=== PATIENT | male | born 1955 | race Caucasian/White ===

== ENCOUNTER 2024-08-25 17:50 | Emergency (ER) | payer OTHER ==
[2024-08-25] MEDS ORDERED: ONDANSETRON 4 MG/2 ML VIAL ONE (18:18)
[2024-08-25] MEDS ORDERED: CLOPIDOGREL 75 MG TABLET ONE (18:18)
[2024-08-25] MEDS ORDERED: FAMOTIDINE 20 MG/2 ML VIAL IV ONE (18:18)
[2024-08-25] MEDS ORDERED: MORPHINE 2 MG/ML SYR ONE (18:18)
[2024-08-25] MEDS ORDERED: HEPARIN 5000 UNIT/ML 1 ML VIAL ONE (18:18)
[2024-08-25] MEDS ORDERED: TENECTEPLASE 50 MG/10 ML VIAL IV ONE (18:19)
[2024-08-25] MEDS ORDERED: HEPARIN/D5W 25,000 UNIT/500 ML BAG IV ONE (18:19)
[2024-08-25] MEDS ORDERED: NA CHLORIDE 0.9% 1,000 ML ONE (18:19)
[2024-08-25] MEDS ORDERED: ASPIRIN 81 MG CHEWABLE TABLET ONE (18:29)
--- NOTE | 2024-08-25 18:32 | EDPHYS ---
Physician Documentation [facility] Name: Akil Macias Age: 69 yrs Sex: Male : 1955 Arrival Date: 08/25/2024 Time: 17:50 Bed IW10 Private MD: ED Physician Talon Smith HPI: 08/25 18:01 This 69 yrs old Male presents to ER via Unassigned with complaints of Chest Pain, Arm kb Pain, Vomiting. 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 Reports vomiting x1, shortness of breath and clamminess. Pt has never had this pain before. States he was riding in a car when the pain came on. . 18:27 The patient or guardian reports chest pain that is located primarily in the substernal isabel area. Onset: just prior to arrival. The pain does not radiate. Associated signs and symptoms: Pertinent positives: nausea, shortness of breath. The chest pain is described as crushing. Modifying factors: The symptoms are alleviated by nothing. the symptoms are aggravated by nothing. Severity of pain: At its worst the pain was moderate severe in the emergency department the pain is unchanged. The patient has not experienced similar symptoms in the past. Historical: - Allergies: 18:08 No Known Allergies; hb - PMHx: 18:10 Hypertensive disorder; Hypercholesterolemia; rs5 - PSHx: 18:10 None; rs5 - Immunization history:: Adult Immunizations up to date. - Infectious Disease History:: Denies. - Family history:: not pertinent. - Social history:: Smoking status: Patient denies any tobacco usage or history of. ROS: 18:03 Constitutional: As per HPI kb 18:32 Eyes: Negative for injury, pain, redness, and discharge, ENT: Negative for injury, isabel pain, and discharge, Neck: Negative for injury, pain, and swelling, Abdomen/GI: Negative for abdominal pain, nausea, vomiting, diarrhea, and constipation, Back: Negative for injury and pain, : Negative for injury, bleeding, discharge, and swelling, MS/Extremity: Negative for injury and deformity, Skin: Negative for injury, rash, and discoloration, Neuro: Negative for headache, weakness, numbness, tingling, and seizure, Psych: Negative for depression, anxiety, suicide ideation, homicidal ideation, and hallucinations, Allergy/Immunology: Negative for hives, rash, and allergies, Endocrine: Negative for neck swelling, polydipsia, polyuria, polyphagia, and marked weight changes, Hematologic/Lymphatic: Negative for swollen nodes, abnormal bleeding, and unusual bruising, 18:32 Cardiovascular: Positive for chest pain, of the chest, 18:32 Respiratory: Positive for shortness of breath, at rest. Exam: 18:03 Constitutional: This is a well developed, well nourished patient who is awake, alert, kb and in no acute distress. Head/Face: Normocephalic, atraumatic. ENT: Moist Mucous membranes Cardiovascular: Regular rate Respiratory: Respirations even and unlabored. No increased work of breathing. Talking in full sentences Abdomen/GI: Soft, non-tender. No distention Skin: Warm, dry with normal turgor. Normal color. MS/ Extremity: Pulses equal, no cyanosis. Neurovascular intact. Full, normal range of motion. Neuro: Awake and alert, GCS 15, oriented to person, place, time, and situation. 18:32 ECG was reviewed by the Attending Physician. [facility] 18:38 ECG was reviewed by the Attending Physician. [facility] Vital Signs: 18:07 BP 168 / 98; Pulse 63; Resp 20; Temp 97.7; Pulse Ox 99% on R/A; Weight 67.59 kg; Height hb 5 ft. 3 in. ; Pain 5/10; 18:20 BP 172 / 91; Pulse 77; Resp 17; Pulse Ox 99% on R/A; rs5 18:45 BP 165 / 88; Pulse 69; Resp 18; Pulse Ox 99% on R/A; rs5 18:07 Body Mass Index 26.39 (67.59 kg, 160.02 cm) hb 18:07 Pain Scale: Adult hb MDM: 17:57 Medical Screening Exam initiated kb 18:28 Differential diagnosis: abnormal EKG, acute myocardial infarction, acute pericarditis, isabel anxiety, Cholelithiasis costochondritis, mitral valve prolapse, peptic ulcer disease, pleurisy, pulmonary embolus, stable angina, thoracic aortic disection, unstable angina. HEART Score: History: Highly Suspicious (2), ECG: Significant ST-deviation (2), Age: > or = 65 years (2), Risk Factors: > or = 3 Risk factors for atherosclerotic disease (2), [Hypercholesterolemia] [Hypertension] [+ Family HX] Troponin:. The patient was given aspirin in the Emergency Department. ASHU Risk Score: 1 - patient's age is greater or equal to 65 years, 1 - Three or more CAD risk factors, 1- Known CAD, 1 - ASA use in past 7 days, 1 - Recent [<24hrs] Severe Angina, 1 - ST deviation >0.5mm, TOTAL SCORE = 6. Data reviewed: vital signs, nurses notes, lab test result(s), EKG, radiologic studies, plain films. Consideration of Admission/Observation Escalation of care including admission/observation considered. I considered the following discharge prescriptions or medication management in the emergency department Medications were administered in the Emergency Department. See MAR. Independent interpretation of the following test(s) in the Emergency Department EKG: See my EKG interpretation above. Test considered but Not performed: Ultrasound NO 2 D ECHO. Care significantly affected by the following chronic conditions: Hypertension. Counseling: I had a detailed discussion with the patient and/or guardian regarding the historical points, exam findings, and any diagnostic results supporting the discharge/admit diagnosis, the presence of at least one elevated blood pressure reading (>120/80) during this emergency department visit, lab results, radiology results, the need to transfer to another facility, for higher level of care, [facility] does not immediately have the required specialist. 08/25 18:09 Order name: Basic Metabolic Panel; Complete Time: 18:58 kb 08/25 18:09 Order name: CBC with Diff; Complete Time: 18:58 kb 08/25 18:09 Order name: LFT's; Complete Time: 18:58 kb 08/25 18:09 Order name: Magnesium; Complete Time: 18:58 kb 08/25 18:09 Order name: NT PRO-BNP; Complete Time: 18:58 kb 08/25 18:09 Order name: Troponin HS; Complete Time: 18:58 kb 08/25 18:30 Order name: Ptt, Activated; Complete Time: 18:58 ap3 08/25 18:09 Order name: EKG; Complete Time: 18:09 kb 08/25 18:09 Order name: Cardiac monitoring; Complete Time: 18:37 kb 08/25 18:09 Order name: EKG - Nurse/Tech; Complete Time: 18:37 kb 08/25 18:09 Order name: IV Saline Lock; Complete Time: 18:37 kb 08/25 18:09 Order name: Labs collected and sent; Complete Time: 18:37 kb 08/25 18:09 Order name: O2 Per Protocol; Complete Time: 18:37 kb 08/25 18:09 Order name: O2 Sat Monitoring; Complete Time: 18:37 kb EC:32 Rate is 71 beats/min. Rhythm is regular. QRS [place] is Normal. AK interval is normal. QT isabel interval is normal. No Q waves. T waves are Normal. ST Segment is elevated in leads II, III, aVF. ST Segment is depressed in leads V1, V2, V3, V4. Clinical impression: Inferior AR - acute. Interpreted by me. Reviewed by me. 18:38 Rate is 64 beats/min. Rhythm is regular. QRS [place] is Normal. [place] interval is normal. QRS isabel interval is normal. QT interval is normal. No Q waves. T waves are Normal. ST Segment is elevated in leads II, III, aVF. ST Segment is depressed in leads V1, V2, V3, V4. Clinical impression: Inferior AR - acute. Interpreted by me. Reviewed by me. Administered Medications: 18:20 Drug: Aspirin PO Chewable Tablet 324 mg PO once; 81 mg tablets x 4 Route: PO; rs5 18:50 Follow up: Response: No adverse reaction rs5 18:20 Drug: Tenecteplase IV (Administer 10 ml NS flush BEFORE and AFTER tenecteplase) 35 mg rs5 IV at per protocol once {Co-Signature: ap3 (Odalys Noland RN).} {Note: adm 7 ml .} Route: IV; Rate: per protocol; Site: right antecubital; 18:50 Follow up: Response: No adverse reaction rs5 18:20 Drug: Famotidine IVP 20 mg IVP once; dilute with 10 mL 0.9% NaCl; give over 2 minutes rs5 Route: IVP; Site: right antecubital; 18:40 Follow up: Response: No adverse reaction rs5 18:20 Drug: Heparin (AR-Bolus with thrombolytic) - HEParin IVP 60 units/kg IVP once; Max 4000 kb3 units Route: IVP; Site: right antecubital; 18:50 Follow up: Response: No adverse reaction rs5 18:20 Drug: Heparin (AR Drip) 12 units/kg/[place] - ([place] [address] units, D5W IV 500 ml) IV at kb3 calculated rate Per protocol; Max initial rate 1000 units/hr {Note: 800 units/hr .} Route: IV; Rate: calculated rate; Site: right antecubital; 18:50 Follow up: Response: No adverse reaction; IV Status: Infusion continued upon transfer rs5 18:20 Drug: NS 0.9% IV 1000 ml IV at 1000 ml once; to be given as a bolus over 60 minutes rs5 Route: IV; Rate: 1000 ml; Site: right antecubital; 18:50 Follow up: Response: No adverse reaction; IV Status: Infusion continued upon transfer; rs5 IV Intake: 400ml 18:20 Drug: morphine IVP or IV 2 mg IVP once over 4 mins Route: IVP; Infused Over: 4 mins; rs5 Site: right antecubital; 18:40 Follow up: Response: No adverse reaction rs5 18:20 Drug: Ondansetron IVP 4 mg IVP once; over 2 minutes Route: IVP; Site: right antecubital;rs5 18:30 Follow up: Response: No adverse reaction rs5 18:30 Drug: Clopidogrel PO 300 mg PO once Route: PO; rs5 18:50 Follow up: Response: No adverse reaction rs5 18:58 CANCELLED (Duplicate Order): [id number] mg PO once isable 19:40 Not Given (Patient Refused): morphineor iv 2 mg IVP once over 4 mins rs5 Disposition: 18:28 Co-signature as Attending Physician, Talon Smith MD I agree with the assessment and isabel plan of care. 18:31 Critical Care:. isabel Disposition Summary: 08/25/24 18:31 Transfer Ordered Notes: Transfer Location: [facility] isabel Reason: Higher level of care isabel Condition: Critical isabel Problem: an ongoing problem isabel Symptoms: are unchanged isabel Accepting Physician: TO [facility], [facility](08/25/24 19:31) al5 Diagnosis - ST elevation (STEMI) myocardial infarction of unspecified site - POSTERIOR isabel - Essential (primary) hypertension isabel - Hypokalemia isabel Discharge Instructions: - Discharge Summary Sheet bc6 Forms: - Medication Reconciliation Form isabel - SBAR form bc6 Critical care time excluding procedures: 18:31 Critical care time: Bedside Care: 25 minutes, Consultation: 15 minutes, Family isabel Intervention: 5 minutes. Total time: 45 minutes Signatures: Dispatcher [employer] EDEstefanía Coley, AV MYERS-Talon Mack MD MD cha Baxter, Heather, RN RN Elsie Ruff, RN RN kb3 Glynn Lemus RN RN rs5 Odalys Broussard RN RN al5 Odalys Noland RN ap3 Corrections: (The following items were deleted from the chart) 18:58 18:51 Clopidogrel PO 300 mg PO once ordered. [facility] 18:59 18:31 TO [facility] 19:18 18:09 Chest Single View+[id number] ordered. [facility] 19: 18:59 TO [facility] isabel al5
--- NOTE | 2024-08-25 18:32 | ER ---
Nurse's Notes [facility] Name: Akil Macias Age: 69 yrs Sex: Male : 1955 Arrival Date: 08/25/2024 Time: 17:50 Bed IW10 Private MD: Diagnosis: ST elevation (STEMI) myocardial infarction of unspecified site-POSTERIOR;Essential (primary) hypertension;Hypokalemia Presentation: 08/25 18:07 Chief complaint: Chest pressure, SOB, and N/V x 1 hr. Coronavirus screen: At this time, hb the client does not indicate any symptoms associated with coronavirus-19. Ebola Screen: No symptoms or risks identified at this time. Initial Sepsis Screen: Does the patient meet any 2 criteria? No. Patient's initial sepsis screen is negative. Does the patient have a suspected source of infection? No. Patient's initial sepsis screen is negative. Risk Assessment: Do you want to hurt yourself or someone else? Patient reports no desire to harm self or others. Onset of symptoms was August 25, 2024. 18:07 Method Of Arrival: Ambulatory hb 18:07 Acuity: ZAIRA 2 hb Historical: - Allergies: 18:08 No Known Allergies; hb - PMHx: 18:10 Hypertensive disorder; Hypercholesterolemia; rs5 - PSHx: 18:10 None; rs5 - Immunization history:: Adult Immunizations up to date. - Infectious Disease History:: Denies. - Family history:: not pertinent. - Social history:: Smoking status: Patient denies any tobacco usage or history of. Screenin:10 [facility] ED Fall Risk Assessment (Adult) History of falling in the last 3 months, rs5 including since admission No falls in past 3 months (0 pts) Confusion or Disorientation No (0 pts) Intoxicated or Sedated No (0 pts) Impaired Gait No (0 pts) Mobility Assist Device Used No (0 pt) Altered Elimination No (0 pt) Score/Fall Risk Level 0 - 2 = Low Risk Oriented to surroundings, Maintained a safe environment. 18:10 Abuse screen: Denies threats or abuse. Nutritional screening: No deficits noted. rs5 Tuberculosis screening: No symptoms or risk factors identified. Assessment: 18:10 General: Appears in no apparent distress. uncomfortable, Behavior is calm, cooperative. rs5 Pain: Complains of pain in chest Pain radiates to left arm Pain currently is 7 out of 10 on a pain scale. Quality of pain is described as aching, pressure, Pain began 1 hour ago. Is continuous. 18:10 Neuro: rs5 18:10 Neuro: Level of Consciousness is awake, alert, obeys commands, Oriented to person, rs5 place, time, situation. Cardiovascular: Patient's skin is warm and dry. Respiratory: Airway is patent Respiratory effort is even, unlabored, Respiratory pattern is regular, symmetrical. GI: Abdomen is round non-distended, Abd is soft and non tender X 4 quads. : No signs and/or symptoms were reported regarding the genitourinary system. EENT: No signs and/or symptoms were reported regarding the EENT system. Derm: Skin is intact, Skin is pink, warm \T\ dry. Musculoskeletal: Range of motion: intact in all extremities. 18:15 Reassessment: Patient and/or family updated on plan of care and expected duration. Pain rs5 level reassessed. Patient is alert, oriented x 3, equal unlabored respirations, skin warm/dry/pink. EKG handed to provider, pt moved to room 2 per MD orders. 18:45 Reassessment: Patient and/or family updated on plan of care and expected duration. Pain rs5 level reassessed. Patient is alert, oriented x 3, equal unlabored respirations, skin warm/dry/pink. 18:50 Reassessment: report given to life flight at bedside . rs5 Vital Signs: 18:07 BP 168 / 98; Pulse 63; Resp 20; Temp 97.7; Pulse Ox 99% on R/A; Weight 67.59 kg; Height hb 5 ft. 3 in. ; Pain 5/10; 18:20 BP 172 / 91; Pulse 77; Resp 17; Pulse Ox 99% on R/A; rs5 18:45 BP 165 / 88; Pulse 69; Resp 18; Pulse Ox 99% on R/A; rs5 18:07 Body Mass Index 26.39 (67.59 kg, 160.02 cm) hb 18:07 Pain Scale: Adult hb Vitals: 18:15 Cardiac Rhythm Assessment Other ST elevation in multiple leads. kb3 ED Course: 17:51 Patient arrived in ED. mr 17:57 Estefanía Malone, AV is PHCP. kb 17:57 Talon Smith MD is Attending Physician. kb 18:08 Triage completed. hb 18:10 Patient has correct armband on for positive identification. Bed in low position. Call rs5 light in reach. Side rails up X2. Client placed on continuous cardiac and pulse oximetry monitoring. NIBP monitoring applied. manager food safety on. Pulse ox on. 18:10 Arm band placed on right wrist. rs5 18:10 One-on-one care X 45 minutes. kb3 18:10 No provider procedures requiring assistance completed. Inserted saline lock: 22 gauge rs5 in left antecubital area, using aseptic technique. Blood collected. Flushed with 10 mL NS. Patient maintains SpO2 saturation greater than 95% on room air. 18:10 EKG done, by ED staff, reviewed by Talon Smith MD. kb3 18:20 Inserted saline lock: 22 gauge in right antecubital area, using aseptic technique. rs5 Blood collected. Flushed with 10 mL NS. 18:20 Initial lab(s) drawn, by ED staff. kb3 18:22 Radiology exam delayed due to IV insertion attempt and/or patient not having az appropriate IV at this time. 18:45 Provided Education on: need for transfer. rs5 18:50 Patient transferred, IV remains in place. rs5 Administered Medications: 18:20 Drug: Aspirin PO Chewable Tablet 324 mg PO once; 81 mg tablets x 4 Route: PO; rs5 18:50 Follow up: Response: No adverse reaction rs5 18:20 Drug: Tenecteplase IV (Administer 10 ml NS flush BEFORE and AFTER tenecteplase) 35 mg rs5 IV at per protocol once {Co-Signature: ap3 (Odalys Noland RN).} {Note: adm 7 ml .} Route: IV; Rate: per protocol; Site: right antecubital; 18:50 Follow up: Response: No adverse reaction rs5 18:20 Drug: Famotidine IVP 20 mg IVP once; dilute with 10 mL 0.9% NaCl; give over 2 minutes rs5 Route: IVP; Site: right antecubital; 18:40 Follow up: Response: No adverse reaction rs5 18:20 Drug: Heparin (MO-Bolus with thrombolytic) - HEParin IVP 60 units/kg IVP once; Max 4000 kb3 units Route: IVP; Site: right antecubital; 18:50 Follow up: Response: No adverse reaction rs5 18:20 Drug: Heparin ([place] Drip) 12 units/kg/[place] - ([place] [address] units, D5W IV 500 ml) IV at kb3 calculated rate Per protocol; Max initial rate 1000 units/hr {Note: 800 units/hr .} Route: IV; Rate: calculated rate; Site: right antecubital; 18:50 Follow up: Response: No adverse reaction; IV Status: Infusion continued upon transfer rs5 18:20 Drug: NS 0.9% IV 1000 ml IV at 1000 ml once; to be given as a bolus over 60 minutes rs5 Route: IV; Rate: 1000 ml; Site: right antecubital; 18:50 Follow up: Response: No adverse reaction; IV Status: Infusion continued upon transfer; rs5 IV Intake: 400ml 18:20 Drug: morphine IVP or IV 2 mg IVP once over 4 mins Route: IVP; Infused Over: 4 mins; rs5 Site: right antecubital; 18:40 Follow up: Response: No adverse reaction rs5 18:20 Drug: Ondansetron IVP 4 mg IVP once; over 2 minutes Route: IVP; Site: right antecubital;rs5 18:30 Follow up: Response: No adverse reaction rs5 18:30 Drug: Clopidogrel PO 300 mg PO once Route: PO; rs5 18:50 Follow up: Response: No adverse reaction rs5 18:58 CANCELLED (Duplicate Order): [id number] mg PO once [facility] 19:40 Not Given (Patient Refused): morphineor iv 2 mg IVP once over 4 mins rs5 Medication: 18:08 VIS not applicable for this client. rs5 Intake: 18:50 IV: 400ml; Total: 400ml. rs5 Outcome: 18:31 ER care complete, transfer ordered by . isabel 18:50 Patient left the ED. rs5 18:50 Transferred by helicopter to [facility], Transfer form completed. rs5 18:50 Condition: stable 18:50 Instructed on the need for transfer, Demonstrated understanding of instructions, Signatures: Estefanía Malone, BAND NAILER-C BAND NAILER-Talon Mack MD MD cha Rivera, Mary, Reg Deidre Castelan RN Vanessa German Kelly, RN RN kb3 Glynn Lemus RN RN rs5 Odalys Broussard RN RN al5 Odalys Noland RN ap3 Corrections: (The following items were deleted from the chart) 19:36 19:31 Patient left the ED. jean-claude [email or web address]
[2024-08-25 18:33] LABS: Absolute Basophils 0.1 K/uL (0-0.5); Absolute Eosinophils 0.1 K/uL (0-0.5); Absolute Lymphocytes (CBC) 4.8 K/uL (0.7-4.9); Absolute Monocytes 1.2 K/uL (0.1-1.3); Absolute Neutrophil 8.2 K/uL (1.8-8.0); Eosinophils % 0.8 % (0-4.4); Hemoglobin 15.2 g/dL (13.6-17.9); Lymphocytes % 33.4 % (15.3-44.8); MCH 30.5 pg (27.0-35.0); MCHC 33.8 g/dL (32.0-36.0); MCV 90.1 fL (80-100); MPV 7.5 fL (7.6-11.3); Monocytes % 8.5 % (3.3-12.3); Neutrophils % 56.3 % (41.7-73.7); Nucleated Red Blood Cells % 0.1 % (0-0); Platelets 482 thou/uL (152-406); RBC Red Blood Cell Count 4.99 M/uL (4.33-5.43); Red Cell Distribution Width 13.9 % (12.1-15.2)
[2024-08-25 18:54] LABS: ALT/SGPT 16 U/L (16-61); AST/SGOT 15 U/L (15-37); Albumin 3.4 g/dL (3.4-5.0); Albumin/Globulin Ratio 0.8 (1.1-1.8); Alkaline Phosphatase 107 U/L (45-117); Anion Gap 8.9 mEq/L (5.0-15.0); BUN Blood Urea Nitrogen 15 mg/dL (7-18); Bicarbonate 33 mEq/L (21-32); Bilirubin Direct < 0.2 mg/dL (0-0.2); Bilirubin Indirect, Calculated 0.1 mg/dL (0.2-0.8); Bilirubin Total 0.3 mg/dL (0.2-1.0); Globulin 4.3 g/dL (2.3-3.5); Glomerular Filtration Rate 71 ml/min (=/>90); Glucose Level 123 mg/dL (74-106); Magnesium 2.3 mg/dL (1.6-2.4); NT PRO-BNP 114 pg/mL (<125); Potassium 2.9 mEq/L (3.5-5.1); Protein, Total 7.7 g/dL (6.4-8.2); Sodium Level 137 mEq/L (136-145); Troponin High Sensitivity 21.7 pg/mL (<58.9)
[2024-08-25 19:35] VITALS: BP 168/98; TEMP 97.7; O2SAT 99
--- NOTE | 2024-08-29 13:47 | EKG ---
Test Date: 2024-08-25 Test Time: 18:11:34 Calibration Tester: MAXIMILIAN MEASUREMENT RESULTS: Intervals: Rate: 71 VT: 170 QRSD: 86 QT: 402 QTc: 436 [place]: P: 72 VT: 170 QRS: 55 T: 56 INTERPRETIVE STATEMENTS: Sinus rhythm with marked sinus arrhythmia ST elevation, consider inferolateral injury or acute infarct ACUTE CA / STEMI Abnormal ECG No previous ECG available for comparison Electronically Signed On 08-29-24 13:38:43 HOT METAL CRANE OPERATOR by Samir Madera
--- NOTE | 2024-08-29 13:47 | EKG ---
Test Date: 2024-08-25 Test Time: 18:09:35 Mathematics Professor: MAXIMILIAN MEASUREMENT RESULTS: Intervals: Rate: 64 MT: 180 QRSD: 86 QT: 402 QTc: 414 [place]: P: 55 MT: 180 QRS: 51 T: 55 INTERPRETIVE STATEMENTS: Sinus rhythm with marked sinus arrhythmia ST elevation, consider inferolateral injury or acute infarct ACUTE [place] / STEMI Abnormal ECG No previous ECG available for comparison Electronically Signed On 08-29-24 13:38:50 CAR RENTAL SERVICE ATTENDANT by Samir Madera
== END 2024-08-25 19:31 | disposition short-term general hospital (02) ==
LOC: ER 17:50
DX: I21.29 ST elevation (STEMI) myocardial infarction involving other sites (principal); I10 Essential (primary) hypertension; E87.6 Hypokalemia; E78.00 Pure hypercholesterolemia, unspecified
CPT/HCPCS: 96365; 92977; 93005 ×2; 85025; 80048; 36415; 83735; 80076; 85730; 84484; 83880; 96375; 99285; J1644; J3101; J2270; J2405; J7030